=== PATIENT | male | born 1970 | race Caucasian/White ===

== ENCOUNTER 2019-01-17 18:01 | Emergency (ER) | payer SELFPAY ==
[~2019-01-17] VITALS: Ht 170.2 cm; Wt 77.1 kg
[2019-01-17 18:21] VITALS: BP 141/89
--- NOTE | 2019-01-17 19:09 | NUR ---
PT NOT IN WAITING ROOM FOR BED ASSIGNMENT.
--- NOTE | 2019-01-17 19:15 | NUR ---
PT NOT IN WAITING ROOM FOR BED ASSIGNMENT.
--- NOTE | 2019-01-17 19:20 | NUR ---
PT NOT IN WAITING ROOM FOR BED ASSIGNMENT.
== END 2019-01-17 20:38 | disposition left against medical advice (07) ==
LOC: ER 18:05
DX: F41.9 Anxiety disorder, unspecified (principal); Z53.21 Procedure and treatment not carried out due to patient leaving prior to being seen by health care provider